=== PATIENT | female | born 1970 | race Caucasian/White ===

== ENCOUNTER → 2019-10-11 15:13 | Outpatient (BNVA) | payer OTHER, SELFPAY | PROVIDERS: Family Provider Family Medicine; Visit Provider Nurse Practitioner Family | DX: G35 Multiple sclerosis (principal); E55.9 Vitamin D deficiency, unspecified; E53.8 Deficiency of other specified B group vitamins; Z13.6 Encounter for screening for cardiovascular disorders | CPT/HCPCS: 80053; 80061; 82306; 82607; 84443; 85025 ==

== ENCOUNTER 2020-11-30 14:51 | Outpatient (CLI) | payer OTHER, SELFPAY ==
--- NOTE | 2020-11-30 15:30 | MM_ITS ---
WS: [id number] BILATERAL DIGITAL SCREENING MAMMOGRAPHY WITH CAD CLINICAL INFORMATION: Z12.31 - Encounter for screening mammogram for malignant ... HISTORY: Screening mammogram. No current complaints. COMPARISON: None. TECHNIQUE: Bilateral CC and MLO views. FINDINGS: Scattered fibroglandular densities bilaterally. A few incidental intramammary lymph nodes. No suspici ous focal mass, asymmetry, calcifications, or architectural distortion. No evidence of malignancy. MM/[place] [id number] IMPRESSION: BI-RADS: 2-Benign FOLLOW UP: 1 Year Follow-up Recommend return to annual screening mammography.
== END 2020-11-30 14:52 | disposition home or self-care (01) ==
LOC: RADSHAW 14:54
PROVIDERS: PCP Nurse Practitioner; Visit Provider Nurse Practitioner Family
DX: Z12.31 Encounter for screening mammogram for malignant neoplasm of breast (principal)
CPT/HCPCS: 77067

== ENCOUNTER 2021-01-15 14:31 | Outpatient (CLI) | payer OTHER, SELFPAY ==
[2021-01-15 14:38] VITALS: BP 134/81; PULSE 70; RESP 18; TEMP 37; O2SAT 97
== END 2021-01-15 14:32 | disposition home or self-care (01) ==
LOC: ONCMED 14:33
PROVIDERS: PCP Nurse Practitioner; Referring Provider Psychiatry & Neurology Neurology; Visit Provider Psychiatry & Neurology Neurology
DX: E53.8 Deficiency of other specified B group vitamins (principal); E55.9 Vitamin D deficiency, unspecified
CPT/HCPCS: J2930; J7050

== ENCOUNTER 2021-01-16 07:00 | Outpatient (CLI) | payer OTHER, SELFPAY ==
[2021-01-16 14:45] VITALS: BP 117/72; PULSE 68; RESP 18; TEMP 37; O2SAT 98
== END 2021-01-16 07:01 | disposition home or self-care (01) ==
LOC: ONCMED 07:01
PROVIDERS: PCP Nurse Practitioner; Referring Provider Psychiatry & Neurology Neurology; Visit Provider Psychiatry & Neurology Neurology
DX: E53.8 Deficiency of other specified B group vitamins (principal); E55.9 Vitamin D deficiency, unspecified; G35 Multiple sclerosis
CPT/HCPCS: J2930; J7050

== ENCOUNTER 2021-01-17 06:59 | Outpatient (CLI) | payer OTHER, SELFPAY ==
[2021-01-17 14:27] VITALS: BP 130/78; PULSE 77; RESP 18; TEMP 36.7; O2SAT 98
== END 2021-01-17 07:00 | disposition home or self-care (01) ==
LOC: ONCMED 07:00
PROVIDERS: PCP Nurse Practitioner; Visit Provider Psychiatry & Neurology Neurology
DX: E53.8 Deficiency of other specified B group vitamins (principal); E55.9 Vitamin D deficiency, unspecified; G35 Multiple sclerosis
CPT/HCPCS: J2930; J7050

== ENCOUNTER → 2021-01-29 14:39 | Outpatient (BNVA) | payer OTHER, SELFPAY | PROVIDERS: PCP Nurse Practitioner; Visit Provider Nurse Practitioner Family | DX: K59.09 Other constipation (principal); K62.5 Hemorrhage of anus and rectum; R53.83 Other fatigue; K59.00 Constipation, unspecified | CPT/HCPCS: 74018; 80053; 82306; 82607; 85025 ==

== ENCOUNTER → 2021-04-02 10:12 | Outpatient (BNVA) | payer OTHER, SELFPAY | PROVIDERS: PCP Nurse Practitioner; Visit Provider Surgery | DX: Z20.822 Contact with and (suspected) exposure to COVID-19 (principal); Z11.52 Encounter for screening for COVID-19 | CPT/HCPCS: 87635 ==

== ENCOUNTER 2021-04-06 06:35 | Day surgery (SDC) | payer OTHER, SELFPAY ==
[2021-04-04 12:03] VITALS: BMI 29.0
[2021-04-06 07:09] VITALS: BP 120/95; PULSE 67; RESP 18; TEMP 36.1; O2SAT 98
--- NOTE | 2021-04-06 07:10 | ANES.PREANE2 ---
Pre-Anesthetic Assessment Pre-Anesthetic Assessment: Height/Weight: Height 1.68 m Weight 81.647 kg Temp Pulse Resp BP Pulse Ox 97.0 F L 67 18 120/95 98 04/06/21 07:09 04/06/21 07:09 04/06/21 07:09 04/06/21 07:09 04/06/21 07:09 Preop Diagnosis: diagnostic Proposed Procedure: Operation Date: 04/06/21 07:45 Proposed Procedures p Colonoscopy 63432 K62.5(Not Applicable) - Pool Bautista MD Was Beta Madalyn taken within 24 hours: N/A Was Clonidine taken within 24 hours: N/A Social: Social History: No alcohol and No tobacco Exam: Pre-Anes Outpt Exam: alert, oriented x 3, clear to auscultation bilaterally and regular rate & rhythm Airway: Submandibular: WNL Cervical ROM: WNL MP: 2 Dentition: Full CV/HEM: CV/HEM: Anemia Neuropsych: Comments: MS Anesthetic Plan: ASA status: 2 Anesthesia: MAC Risk of > 500 ml blood loss (7ml/kg in children): No PFSH Anesthesia PFSH: Medical History Chronic constipation Multiple sclerosis Vitamin B 12 deficiency Vitamin D deficiency Surgical History History of colonoscopy 20+yrs Hx of section Hx of hysterectomy Hx of laparoscopic gastric banding Social History Smoking and tobacco status: never smoked Second hand smoke exposure: No Alcohol intake: never Lives independently: Yes Household members: spouse Housing: House Marital status: History of recent travel: No Data Anesthesia Cardiac Studies: No Data to Display
[2021-04-06] MEDS: sodium chloride 0.9% 1,000 ML 30 ML IV (07:15)
--- NOTE | 2021-04-06 07:49 | P.HP_ITS ---
Same Day Surgery H&P Indication for Procedure/HPI DATE OF PROCEDURE: April 06, 2021 CHIEF COMPLAINT/INDICATIONFOR SURGICAL PROCEDURE: constipation PREOP DIAGNOSIS: diagnostic PLANNED PROCEDRUE: Operation Date: 04/06/21 07:45 Proposed Procedures p Colonoscopy 49608 K62.5(Not Applicable) - Pool Bautista MD Medications/Allergies* Allergies/Adverse Reactions Allergy/AdvReac Type Severity Reaction Status Date / Time No Known Allergies Allergy Verified 04/04/21 12:04 Current Medications: Generic Name Dose Route Start Last Admin Trade Name Freq PRN Reason Stop Dose Admin Sodium Chloride 1,000 mls @ 30 mls/hr 04/06/21 07:00 04/06/21 07:15 Sodium Chloride 0.9% IV 04/07/21 06:59 30 mls/hr .Q24H RAFAEL Administration Pertinent History/Comorbid Conditions* Medical History (Updated 02/06/21 @ 17:59 by Pool Bautista MD) Chronic constipation Multiple sclerosis Vitamin B 12 deficiency Vitamin D deficiency Surgical History (Updated 02/06/21 @ 17:59 by Pool Bautista MD) History of colonoscopy 20+yrs Hx of section Hx of hysterectomy Hx of laparoscopic gastric banding Social History Smoking and tobacco status: never smoked Second hand smoke exposure: No Alcohol intake: never Lives independently: Yes Household members: spouse Housing: House Marital status: History of recent travel: No Pertinent Exam Findings alert, oriented x 3 and regular rate & rhythm Recommendations Surgery/Procedure today Coding Level of Care Code Acute 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
[2021-04-06 08:12] VITALS: BP 120/95; PULSE 59; RESP 16; TEMP 36.1; O2SAT 98
[2021-04-06 08:29] VITALS: BP 127/91; PULSE 45; RESP 16; O2SAT 95
--- NOTE | 2021-04-06 08:55 | ANE.PACU2 ---
Inpatient post-anesthesia follow up: Airway intact: Yes Vital signs: Temperature 97 F Pulse Rate 45 Respiratory Rate 16 Blood Pressure 127/91 Pulse Oximetry 95 Oxygen Delivery Me thod Room Air Oxygen Flow Rate Fraction of Inspir ed Oxygen Hydration adequate: Yes Mental status: Baseline
--- NOTE | 2021-04-06 13:19 | ANE.PACU2 ---
Inpatient post-anesthesia follow up: Airway intact: Yes Vital signs: Temperature 97 F Pulse Rate 45 Respiratory Rate 16 Blood Pressure 127/91 Pulse Oximetry 95 Oxygen Delivery Me thod Room Air Oxygen Flow Rate Fraction of Inspir ed Oxygen Hydration adequate: Yes Nausea and vomiting: No Pain level: 1 Mental status: Baseline
== END 2021-04-06 08:56 | disposition home or self-care (01) ==
PROVIDERS: PCP Nurse Practitioner; Visit Provider Surgery
PROC: 0DJD8ZZ Inspection of Lower Intestinal Tract, Via Natural or Artificial Opening Endoscopic (ICD-10-PCS; CPT 45378; principal; 2021-04-06 07:45)
DX: K59.00 Constipation, unspecified (principal); G35 Multiple sclerosis; D12.2 Benign neoplasm of ascending colon; D12.4 Benign neoplasm of descending colon; K64.8 Other hemorrhoids
CPT/HCPCS: 45380; 88305; 96360; J7030

== ENCOUNTER → 2021-05-04 10:42 | Outpatient (BNVA) | payer OTHER, SELFPAY | PROVIDERS: PCP Nurse Practitioner; Visit Provider Nurse Practitioner Family | DX: E53.8 Deficiency of other specified B group vitamins (principal); Z13.6 Encounter for screening for cardiovascular disorders; E55.9 Vitamin D deficiency, unspecified | CPT/HCPCS: 80053; 80061; 82306; 82607; 85025 ==

== ENCOUNTER 2021-05-11 08:04 | Outpatient (CLI) | payer OTHER, SELFPAY ==
[2021-05-11 08:05] VITALS: BP 112/66; BP 115/76; PULSE 57; PULSE 64; RESP 16; TEMP 36.3; TEMP 36.7; O2SAT 98; BMI 29.0
[2021-05-11 09:02] VITALS: BP 115/76; PULSE 98; RESP 16; TEMP 36.7; O2SAT 98
== END 2021-05-11 10:02 | disposition home or self-care (01) ==
LOC: OPS 08:05
PROVIDERS: PCP Nurse Practitioner; Visit Provider Nurse Practitioner Family
DX: U07.1 COVID-19 (principal)
CPT/HCPCS: 96365

== ENCOUNTER → 2021-10-09 09:35 | Outpatient (BNVA) | payer OTHER, SELFPAY | PROVIDERS: PCP Nurse Practitioner; Visit Provider Psychiatry & Neurology Neurology | DX: E53.8 Deficiency of other specified B group vitamins (principal); E55.9 Vitamin D deficiency, unspecified; M21.372 Foot drop, left foot; M62.838 Other muscle spasm; N31.9 Neuromuscular dysfunction of bladder, unspecified; R26.89 Other abnormalities of gait and mobility; R29.898 Other symptoms and signs involving the musculoskeletal system; R53.82 Chronic fatigue, unspecified | CPT/HCPCS: 80053; 82306; 82607; 82784; 85025; 86480; 86705; 86711; 86803; 87340 ==

== ENCOUNTER 2022-09-20 07:18 | Emergency (ER) | payer OTHER, SELFPAY ==
--- NOTE | 2022-09-20 07:21 | XR_ITS ---
WS: [id number] Exam: XR chest 1V portable [id number] Date/Time of Exam: 09/20/2022 7:27 AM Reason For Exam: cp No priors. Findings: The lungs are clear and fully expanded. Costophrenic angles are sharp. No infiltrates. Bronchovascula r relief appears normal. Cardiac silhouette is unremarkable. Bony elements are intact. Mild spondylos is of the T-spine. XR/XR chest 1V portable [id number] IMPRESSION: Unremarkable chest radiograph.
--- NOTE | 2022-09-20 07:27 | CTR_ITS ---
PROCEDURE INFORMATION: Exam: CTA Chest With Contrast Exam date and time: 09/20/2022 8:15 AM Age: 52 years old Clinical indication: Abdominal pain; Epigastric; Chest pressure; Prior surgery; Surgery date: 3-7 days post-operative; Surgery type: Lap band, hysto, ; Additional info: Cp TECHNIQUE: Imaging protocol: Computed tomographic angiography of the chest with contrast. Exam focused on the arteries. 3D rendering (Not supervised by radiologist): MIP and/or 3D reconstructed images were created by the technologist. Total images: 1 Radiation optimization: All CT scans at this facility use at least one of these dose optimization techniques: automated exposure control; mA and/or kV adjustment per patient size (includes targeted exams where dose is matched to clinical indication); or iterative reconstruction. Contrast material: OMNI 350; Contrast volume: 100 ml; Contrast route: INTRAVENOUS (IV); REPORTING DATA: Count of CT and Cardiac NM exams in prior 12 months: This patient has received 0 known CTs and 0 known cardiac nuclear medicine studies in the 12 months prior to the current study. COMPARISON: CR XR chest 1V portable [id number] 09/20/2022 7:46 AM RADIATION DOSE METRICS: Total DLP (mGy-cm): 1060.52 FINDINGS: Pulmonary arteries: Pulmonary artery evaluation of good technical quality with no pulmonary artery embolism identified. Aorta: Unremarkable. No aortic aneurysm. No aortic dissection. Lungs: No acute focal pulmonary opacities are detected. Pleural spaces: Unremarkable. No pneumothorax. No pleural effusion. Heart: Unremarkable. No cardiomegaly. No pericardial effusion. Lymph nodes: Unremarkable. No enlarged lymph nodes. Bones/joints: Unremarkable. No acute fracture. Soft tissues: Unremarkable. PROCEDURE INFORMATION: Exam: CT Abdomen And Pelvis With Contrast Exam date and time: 09/20/2022 8:15 AM Age: 52 years old Clinical indication: Abdominal pain; Epigastric; Chest pressure; Prior surgery; Surgery date: 3-7 days post-operative; Surgery type: Lap band, hysto, ; Additional info: Cp TECHNIQUE: Imaging protocol: Computed tomography of the abdomen and pelvis with contrast. Radiation optimization: All CT scans at this facility use at least one of these dose optimization techniques: automated exposure control; mA and/or kV adjustment per patient size (includes targeted exams where dose is matched to clinical indication); or iterative reconstruction. Contrast material: OMNI 350; Contrast volume: 100 ml; Contrast route: INTRAVENOUS (IV); REPORTING DATA: Count of CT and Cardiac NM exams in prior 12 months: This patient has received 0 known CTs and 0 known cardiac nuclear medicine studies in the 12 months prior to the current study. COMPARISON: CR XR abdomen 1V* [id number] 01/29/2021 2:39 PM RADIATION DOSE METRICS: Total DLP (mGy-cm): 1060.52 FINDINGS: Liver: Normal. No mass. Gallbladder and bile ducts: Normal. No calcified stones. No ductal dilation. Pancreas: Normal. No ductal dilation. Spleen: Normal. No splenomegaly. Adrenal glands: Normal. No mass. Kidneys and ureters: 12 mm incidental right renal cyst, requiring no further evaluation. Stomach and bowel: There is a gastric band identified and is intact. There is no gastric band slippage. Appendix: No evidence of appendicitis. Intraperitoneal space: Unremarkable. No free air. No significant fluid collection. Vasculature: Incidental phleboliths noted. Lymph nodes: Unremarkable. No enlarged lymph nodes. Urinary bladder: Unremarkable as visualized. Reproductive: Prior hysterectomy noted. Bones/joints: Unremarkable. No acute fracture. Soft tissues: Unremarkable. CT/CT angio chest w abd pel w con IMPRESSION: 1. No pulmonary artery embolism identified. 2. No acute focal pulmonary opacities are detected. 3. No acute process identified. IMPRESSION: No acute findings. COMMENTS: Consistent with the [employer]'s Incidental Findings Committee white paper (J Am Syl Radiol 2018): Any incidental renal lesion less than 1 cm or classified as too small to characterize, or any incidental cystic renal lesion characterized as simple-appearing, is likely benign. No follow-up imaging is recommended for these lesions per consensus recommendations based on imaging criteria.
--- NOTE | 2022-09-20 07:33 | W.ED.CHESTPA ---
HPI - Chest Pain General: Chief Complaint: Chest Pain Stated Complaint: Chest pain, Lips numb, SOB Time Seen by Provider: 09/20/22 07:20 Source: patient Mode of arrival: ambulatory Limitations: no limitations History of Present Illness: 52-year-old female has a history of MS she also has a history of a Lap-Band she states she had had surgery on Friday to have her lap band adjusted. She states that today she has been having severe pain in her upper abdomen and around her chest. She states is a sharp pain she rates it a 8 out of 10 she denies any fever she has had some dyspnea. Denies any vomiting or diarrhea. Associated symptoms: Reports abdominal pain and nausea; Deny dyspnea or fever(s) Review of Systems Const: Denies: fever(s) or chills ENMT: Denies: throat pain or dental pain Card: Reports: chest pain Resp: Denies: dyspnea GI: Reports: abdominal pain and nausea : Denies: dysuria Musc: Denies: neck pain or back pain Skin/Breast: Denies: rash Neuro: Denies: headache(s) PFSH ED PFSH: Medical History Chronic constipation Multiple sclerosis Vitamin B 12 deficiency Vitamin D deficiency Surgical History History of colonoscopy (04/06/21) 20+yrs Hx of section Hx of hysterectomy Hx of laparoscopic gastric banding Social History Second hand smoke exposure: No Alcohol intake: never Substance/Drug Use: never Lives independently: Yes Household members: spouse Housing: House Marital status: Physical Exam Const: COMMON NORMALS: patient oriented x3 HENMT: COMMON NORMALS: normocephalic and atraumatic HEAD & SCALP: normocephalic and atraumatic Eye: COMMON NORMALS: conjunctivae normal CONJUNCTIVA: Yes conjunctivae normal Neck/C-Spine: COMMON NORMALS: full ROM and supple Chest: COMMONS NORMALS: normal inspection of the chest and normal palpation of entire chest wall Resp: COMMON NORMALS: normal respiratory effort, No retractions, No use of accessory muscles and clear to auscultation bilaterally AUSCULTATION: clear to auscultation bilaterally Cardio: COMMON NORMALS: regular rate, regular rhythm and No murmurs present (Cardio) RATE: regular rate RHYTHM: regular rhythm GI: COMMON NORMALS: Normal to inspection, nondistended, normoactive bowel sounds present, Soft to palpation and no masses PALPATION: Yes Soft to palpation OTHER: diffuse tenderness Extremity: COMMON NORMALS: normal to inspection and full ROM Neuro: COMMON NORMALS: patient oriented x3, moves all extremities and no focal motor deficits Psych: COMMON NORMALS: mental status grossly normal, Normal thought process present and cooperative THOUGHT PROCESS: Normal thought process present Skin: COMMON NORMALS: no rashes or lesions noted and no wounds GENERAL SKIN EXAM: no rashes or lesions noted Course Vital Signs: Vital signs: Vital Signs Temperature 98.0 F 09/20/22 07:37 Pulse Rate 80 09/20/22 09:10 Respiratory Rate 20 H 09/20/22 07:42 Blood Pressure 142/96 09/20/22 09:10 Pulse Oximetry 94 09/20/22 09:10 Oxygen Delivery Me thod Room Air 09/20/22 09:10 MDM - Chest Pain Medical Decision Making Patient presented her chest and abdominal pain. Is likely postop pain she did have a recent surgery her CT scan and blood work here are all normal her troponins are normal no signs of acute coronary syndrome she has no PE she feels much improved here we will place her on pain meds she follows up with her gastric surgeon and 2 weeks to follow-up as scheduled return if worsening she understands agrees to plan. Medical Records I reviewed the patient's medical records. Lab Data I reviewed the patient's lab results. 09/20/22 07:35 09/20/22 07:35 Radiology Impressions Chest X-Ray 09/20/22 07:21 IMPRESSION: Unremarkable chest radiograph. Chest/Abdomen/Pelvis CT 09/20/22 07:27 IMPRESSION: 1. No pulmonary artery embolism identified. 2. No acute focal pulmonary opacities are detected. 3. No acute process identified. IMPRESSION: No acute findings. COMMENTS: Consistent with the [employer]'s Incidental Findings Committee white paper (J Am Syl Radiol 2018): Any incidental renal lesion less than 1 cm or classified as too small to characterize, or any incidental cystic renal lesion characterized as simple-appearing, is likely benign. No follow-up imaging is recommended for these lesions per consensus recommendations based on imaging criteria. Laboratory Results WBC 8.1 10^3/uL (4.0-10.0) 09/20/22 07:35 RBC 5.26 10^6/uL (4.1-5.3) 09/20/22 07:35 Hgb 14.9 g/dL (11.5-15.3) 09/20/22 07:35 Hct 44.7 % (37.0-47.0) 09/20/22 07:35 MCV 85.0 fl (81-99) 09/20/22 07:35 MCH 28.3 pg (28.0-34.0) 09/20/22 07:35 MCHC 33.3 g/dL (30.0-36.0) 09/20/22 07:35 RDW 12.5 % (12.1-15.1) 09/20/22 07:35 Plt Count 342 10^3/cmm (130-400) 09/20/22 07:35 MPV 10.8 fL (7.4-10.4) H 09/20/22 07:35 Neut % (Auto) 44.1 % 09/20/22 07:35 Lymph % (Auto) 42.9 % 09/20/22 07:35 Wood % (Auto) 9.2 % 09/20/22 07:35 Eos % (Auto) 2.2 % 09/20/22 07:35 Baso % (Auto) 0.6 % 09/20/22 07:35 Neut # (Auto) 3.58 10^3/uL (1.8-7.7) 09/20/22 07:35 Lymph # (Auto) 3.5 10^3/uL (0.8-4.8) 09/20/22 07:35 Wood # (Auto) 0.8 10^3/uL (0.2-0.9) 09/20/22 07:35 Eos # (Auto) 0.2 10^3/uL (0.0-0.8) 09/20/22 07:35 Baso # (Auto) 0.1 10^3/uL (0.0-0.1) 09/20/22 07:35 Nucleated RBC % (auto) 0 % 09/20/22 07:35 Nucleated RBCs # 0.0 /100WBC 09/20/22 07:35 PT 13.10 SECONDS (12.1-14.9) 09/20/22 07:35 INR 0.96 (0.8-1.2) 09/20/22 07:35 Sodium 139 mmol/L (136-145) 09/20/22 07:35 Potassium 3.0 mmol/L (3.5-5.1) L 09/20/22 07:35 Chloride 99 mmol/L (98-107) 09/20/22 07:35 Carbon Dioxide 24 mmol/L (22-29) 09/20/22 07:35 Anion Gap 19.0 (5-19) 09/20/22 07:35 BUN 13 mg/dL (6-20) 09/20/22 07:35 Creatinine 0.6 mg/dL (0.5-0.9) 09/20/22 07:35 GFR Calculation 105.8 mL/min (90-130) 09/20/22 07:35 Glucose 102 mg/dL (65-115) 09/20/22 07:35 Calculated Osmolality 288 mOsm/kg (285-295) 09/20/22 07:35 Lactic Acid 2.4 mmol/L (0.5-2.2) H 09/20/22 08:05 Calcium 9.2 mg/dL (8.5-10.5) 09/20/22 07:35 Total Bilirubin 0.6 mg/dL (0.15-1.2) 09/20/22 07:35 AST 19 U/L (0-32) 09/20/22 07:35 ALT 13 U/L (0-33) 09/20/22 07:35 Alkaline Phosphatase 84 U/L (35-105) 09/20/22 07:35 Troponin T Baseline 9 ng/L (0-10) 09/20/22 07:35 Troponin T 120 Minute 8.07 ng/L (0-10) 09/20/22 09:50 NT-Pro-B Natriuret Pep 141 pg/mL (0-125) H 09/20/22 07:35 Total Protein 6.7 g/dL (6.6-8.7) 06/02/23 07:35 Albumin 4.0 g/dL (3.5-5.2) 09/20/22 07:35 Globulin 2.7 g/dL (1.3-4.6) 09/20/22 07:35 Lipase 221 U/L (13-60) H 09/20/22 07:35 EKG Data EKG 1: I personally reviewed and interpreted this EKG as follows: EKG interpretation date: 09/20/22 EKG interpretation time: 07:27 Interpretation: nsr hr [address] or t wave abnormalities qrs 92 qtc 425 Discharge Plan Discharge Patient Disposition: Home Clinical Impression: Chest pain, Abdominal pain Condition: Stable Prescriptions: New hydrocodone-acetaminophen 5-325 mg tablet 1 tab PO Q6H PRN (Reason: pain) Qty: 14 0RF ondansetron 4 mg tablet,disintegrating 4 mg PO Q6H PRN (Reason: nausea and vomiting) Qty: 14 0RF No Action (DME) BD Integra Syringe 3 mL 25 gauge x 5/8 syringe See Rx Instructions .Route Qty: 6 0RF Rx Instructions: once monthly at home injection of B12 Pepto-Bismol 262 mg Tablet 262 - 524 mg PO QID PRN (Reason: unknown) Excedrin Migraine 250-250-65 mg Tablet 1 - 2 tab PO Q6H PRN (Reason: Migraine Headache) Ocrevus 30 mg/mL Solution See Rx Instructions .ROUTE .COMPLEX Rx Instructions: intravenously every 6 months as directed Discharge Orders: Discharge ED (Routine); Ordered 09/20/22 Ordered By: Amadou Ash Referrals: Yahaira Kaiser, [facility] [Primary Care Provider] - Discharge Diet: Advance as tolerated Discharge Activity: Resume usual activity Patient Instructions: Chest Pain (ED), Abdominal Pain (ED), Opioid Safety Coding Level of Care Code 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
[2022-09-20 07:37] VITALS: BP 135/90; PULSE 80; RESP 22; TEMP 36.7; O2SAT 100
[2022-09-20 07:41] LABS: Basophils # 0.1 10^3/uL (0.0-0.1); Basophils % 0.6 %; Eosinophils # 0.2 10^3/uL (0.0-0.8); Eosinophils % 2.2 %; Hematocrit 44.7 % (37.0-47.0); Hemoglobin 14.9 g/dL (11.5-15.3); Lymphocytes # 3.5 10^3/uL (0.8-4.8); Lymphocytes % 42.9 %; Mean Corpuscular HGB Conc 33.3 g/dL (30.0-36.0); Mean Corpuscular Hemoglobin 28.3 pg (28.0-34.0); Mean Platelet Volume 10.8 fL (7.4-10.4); Monocytes # 0.8 10^3/uL (0.2-0.9); Monocytes % 9.2 %; Neutrophils # 3.58 10^3/uL (1.8-7.7); Neutrophils % 44.1 %; Nucleated Red Blood Cells % 0 %; Platelet Count 342 10^3/cmm (130-400); Red Blood Count 5.26 10^6/uL (4.1-5.3); Red Cell Distribution Width 12.5 % (12.1-15.1); White Blood Count 8.1 10^3/uL (4.0-10.0)
[2022-09-20 07:42] VITALS: RESP 20; O2SAT 100
[2022-09-20] MEDS: HYDROmorphone 1 mg/mL INJ 1 mL IVP (07:42)
[2022-09-20] MEDS: ondansetron 2 mg/ML SDV 2 mL 4 MG IVP (07:43)
[2022-09-20 07:57] LABS: INR 0.96 (0.8-1.2)
[2022-09-20 08:02] LABS: Troponin(5th) Baseline 9 ng/L (0-10)
[2022-09-20 08:04] LABS: Alanine Aminotransferase 13 U/L (0-33); Alkaline Phosphatase 84 U/L (35-105); Blood Urea Nitrogen 13 mg/dL (6-20); Calcium 9.2 mg/dL (8.5-10.5); Carbon Dioxide 24 mmol/L (22-29); Globulin 2.7 g/dL (1.3-4.6); Glomerular Filtration Rate 105.8 mL/min (90-130); Glucose 102 mg/dL (65-115); Total Bilirubin 0.6 mg/dL (0.15-1.2); Total Protein 6.7 g/dL (6.6-8.7)
[2022-09-20 08:18] LABS: Aspartate Amino Transferase 19 U/L (0-32); Chloride 99 mmol/L (98-107)
[2022-09-20 08:19] LABS: Osmolality Calculated 288 mOsm/kg (285-295); Sodium 139 mmol/L (136-145)
[2022-09-20 08:20] LABS: Lipase 221 U/L (13-60); NT Pro B Type Natriuretic Pept 141 pg/mL (0-125)
[2022-09-20] MEDS: iohexol 350 mg/mL 500 mL Btl (per mL) IV (08:25)
[2022-09-20 08:26] LABS: Lactic Sepsis W/Reflex 2.4 mmol/L (0.5-2.2)
[2022-09-20] MEDS: sodium chloride 0.9% 1,000 ML 999 ML IV (09:04)
[2022-09-20 09:10] VITALS: BP 142/96; PULSE 80; O2SAT 94
--- NOTE | 2022-09-20 09:21 | ECG_ITS ---
[facility] Test Date: 2022-09-20 Pat Name: Terri Ruiz Department: Room: Gender: Female [employer] Job Titles: : 1970 Requested By: Amadou Ash Order Number: [id number] Jackie MD: Feng Lau M.D. Measurements Intervals [place] Rate: 72 P: 20 [place]: 120 QRS: 12 QRSD: 92 T: 34 QT: 401 QTc: 440 Interpretive Statements SINUS RHYTHM No previous ECG available for comparison Electronically Signed On 09-20-2022 8:31:33 CDT by Feng Lau M.D. [email or web address]
--- NOTE | 2022-09-20 09:26 | PC.PHAR ---
pt states she takes care of her own medications-pt states she no longer takes baclofen 10mg,amantadine 100mg or oxybutynin 5mg states she stop taking 3-6 months ago-pt states she is only taking the medications entered
[2022-09-20 09:55] LABS: Reflex Lactate Order REFLEX LACTIC ORDERD
[2022-09-20 10:18] LABS: Troponin 5 2HR 8.07 ng/L (0-10)
[2022-09-20 10:38] VITALS: BP 118/72; PULSE 63; O2SAT 100
[2022-09-20 10:44] LABS: Troponin 5 2HR Delta -0.93 ABS# (0-10)
== END 2022-09-20 10:40 | disposition home or self-care (01) ==
PROVIDERS: Emergency Provider Emergency Medicine; PCP Nurse Practitioner
DX: R07.9 Chest pain, unspecified (principal); R10.9 Unspecified abdominal pain
CPT/HCPCS: 36415; 71045; 71275; 74177; 80053; 83605; 83690; 83880; 84484; 85025; 85610; 93005; 96374; 96375; 99285; J1170; J2405; J7030; Q9967

== ENCOUNTER 2022-09-29 15:02 | Emergency (ER) | payer OTHER, SELFPAY ==
[2022-09-29 15:06] VITALS: BP 137/86; PULSE 70; RESP 12; TEMP 36.7; O2SAT 98; BMI 32.3
--- NOTE | 2022-09-29 15:23 | XRR_ITS ---
PROCEDURE INFORMATION: Exam: XR Abdomen Exam date and time: 09/29/2022 3:28 PM Age: 52 years old Clinical indication: Abdominal pain; Generalized; Additional info: Constipation TECHNIQUE: Imaging protocol: Radiologic exam of the abdomen. Views: Frontal supine view of the abdomen. 1 View. COMPARISON: CT angio chest w abd pel w con 09/20/2022 8:15 AM FINDINGS: Gastrointestinal tract: Moderate colonic stool burden. No bowel dilation. Bones/joints: Unremarkable. XR/XR KUB [id number] IMPRESSION: Moderate colonic stool burden.
--- NOTE | 2022-09-29 15:42 | W.ED.ABDPA2 ---
HPI - Abdominal Pain General: Chief Complaint: Abdominal Pain Stated Complaint: abd + back pain Time Seen by Provider: 09/29/22 15:30 History of Present Illness: Patient stated she has severe abdominal pain for last few days. Patient also states she is constipated which is uncommon for her. Patient states she has tried to take sizx-lvd-efrslvt laxatives the last several days with no success. Patient has EMS and says sometimes her bowels just do not work as good as normal. Review of Systems General: Reports: 10 or more systems reviewed and unremarkable except in HPI and below PFSH ED PFSH: Medical History Chronic constipation Multiple sclerosis Vitamin B 12 deficiency Vitamin D deficiency Surgical History History of colonoscopy (04/06/21) 20+yrs Hx of section Hx of hysterectomy Hx of laparoscopic gastric banding Social History Second hand smoke exposure: No Alcohol intake: never Substance/Drug Use: never Lives independently: Yes Household members: spouse Housing: House Marital status: Physical Exam Const: COMMON NORMALS: no acute distress, average body habitus, patient oriented x3, no limitations, healthy appearing, alert and well nourished HENMT: COMMON NORMALS: normocephalic, atraumatic, hearing grossly normal bilaterally, external ears normal, Normal external nose present and moist oral mucous membranes HEAD & SCALP: normocephalic and atraumatic NOSE: Normal external nose present EXTERNAL EAR: Yes external ears normal Neck/C-Spine: COMMON NORMALS: no JVD Chest: COMMONS NORMALS: normal inspection of the chest and normal palpation of entire chest wall Resp: COMMON NORMALS: normal respiratory effort, No retractions, No use of accessory muscles and clear to auscultation bilaterally AUSCULTATION: clear to auscultation bilaterally Cardio: COMMON NORMALS: no JVD, regular rate, regular rhythm, S1 normal heart sound present, S2 normal heart sound present, No gallops present (Cardio), No clicks present (Cardio), No murmurs present (Cardio) and No rub (Cardio) RATE: regular rate RHYTHM: regular rhythm HEART SOUNDS: S1 normal heart sound present and S2 normal heart sound present GI: COMMON NORMALS: Normal to inspection, nondistended, normoactive bowel sounds present, Soft to palpation, No hepatosplenomegaly present and no masses PALPATION: Yes Soft to palpation, Yes Tenderness to palpation present (GI) (Diffusely) and Yes No hepatosplenomegaly present : COMMON NORMALS: Yes no CVA tenderness BLADDER/KIDNEY EXAM: Yes no CVA tenderness Back/Pelvis: COMMON NORMALS: no CVA tenderness Neuro: COMMON NORMALS: patient oriented x3 SENSORIUM/ORIENTATION: Yes alert Course Vital Signs: Vital signs: Vital Signs Temperature 98.0 F 09/29/22 15:06 Pulse Rate 70 09/29/22 15:06 Respiratory Rate 12 09/29/22 15:06 Blood Pressure 137/86 09/29/22 15:06 Pulse Oximetry 98 09/29/22 15:06 Oxygen Delivery Me thod Room Air 09/29/22 15:06 MDM - Abdominal Pain Medical Decision Making Patient presents to the ER with complaints of abdominal pain and being constipated for the last week. Lab work was drawn which was relatively benign, KUB x-ray was obtained which showed moderate colonic stool burden. Patient was given the option of an enema here or enema going home. Patient chose the enema route here because she has failed all the options that she has tried at home. Patient was given a fleets mineral oil enema here. Patient anticipated discharge to home with further bowel regimen. Differential Diagnosis Likely abdominal pain and constipation; Unlikely acute appendicitis, calculus of kidney, diverticulitis, endometriosis, gastroenteritis, pancreatitis or small bowel obstruction Medical Records I reviewed the patient's medical records. Lab Data I reviewed the patient's lab results. 09/29/22 16:00 09/29/22 16:00 Labs/Radiology: Radiology Impressions KUB X-Ray 09/29/22 15:23 IMPRESSION: Moderate colonic stool burden. Laboratory Results WBC 11.8 10^3/uL (4.0-10.0) H 09/29/22 16:00 RBC 5.03 10^6/uL (4.1-5.3) 09/29/22 16:00 Hgb 14.4 g/dL (11.5-15.3) 09/29/22 16:00 Hct 45.5 % (37.0-47.0) 09/29/22 16:00 MCV 90.5 fl (81-99) 09/29/22 16:00 MCH 28.6 pg (28.0-34.0) 09/29/22 16:00 MCHC 31.6 g/dL (30.0-36.0) 09/29/22 16:00 RDW 13.8 % (12.1-15.1) 09/29/22 16:00 Plt Count 383 10^3/cmm (130-400) 09/29/22 16:00 MPV 10.3 fL (7.4-10.4) 09/29/22 16:00 Neut % (Auto) 83.8 % 09/29/22 16:00 Lymph % (Auto) 7.3 % 09/29/22 16:00 [place] % (Auto) 7.5 % 09/29/22 16:00 Eos % (Auto) 0.7 % 09/29/22 16:00 Baso % (Auto) 0.3 % 09/29/22 16:00 Neut # (Auto) 9.84 10^3/uL (1.8-7.7) H 09/29/22 16:00 Lymph # (Auto) 0.9 10^3/uL (0.8-4.8) 09/29/22 16:00 [place] # (Auto) 0.9 10^3/uL (0.2-0.9) 09/29/22 16:00 Eos # (Auto) 0.1 10^3/uL (0.0-0.8) 09/29/22 16:00 Baso # (Auto) 0.0 10^3/uL (0.0-0.1) 09/29/22 16:00 Nucleated RBC % (auto) 0 % 09/29/22 16:00 Nucleated RBCs # 0.0 /100WBC 09/29/22 16:00 Sodium 134 mmol/L (136-145) L 09/29/22 16:00 Potassium 4.5 mmol/L (3.5-5.1) 09/29/22 16:00 Chloride 96 mmol/L (98-107) L 09/29/22 16:00 Carbon Dioxide 30 mmol/L (22-29) H 09/29/22 16:00 Anion Gap 12.5 (5-19) 09/29/22 16:00 BUN 10 mg/dL (6-20) 09/29/22 16:00 Creatinine 0.6 mg/dL (0.5-0.9) 09/29/22 16:00 GFR Calculation 105.8 mL/min (90-130) 09/29/22 16:00 Glucose 108 mg/dL (65-115) 09/29/22 16:00 Calculated Osmolality 278 mOsm/kg (285-295) L 09/29/22 16:00 Calcium 9.1 mg/dL (8.5-10.5) 09/29/22 16:00 Total Bilirubin 0.4 mg/dL (0.15-1.2) 09/29/22 16:00 AST 51 U/L (0-32) H 09/29/22 16:00 ALT 45 U/L (0-33) H 09/29/22 16:00 Alkaline Phosphatase 100 U/L (35-105) 09/29/22 16:00 Total Protein 6.7 g/dL (6.6-8.7) 09/29/22 16:00 Albumin 3.8 g/dL (3.5-5.2) 09/29/22 16:00 Globulin 2.9 g/dL (1.3-4.6) 09/29/22 16:00 Lipase 17 U/L (13-60) 09/29/22 16:00 Discharge Plan Discharge Patient Disposition: Home Clinical Impression: Constipation Condition: Stable Prescriptions: No Action (DME) BD Integra Syringe 3 mL 25 gauge x 5/8 syringe See Rx Instructions .Route Qty: 6 0RF Rx Instructions: once monthly at home injection of B12 Pepto-Bismol 262 mg Tablet 262 - 524 mg PO QID PRN (Reason: unknown) Excedrin Migraine 250-250-65 mg Tablet 1 - 2 tab PO Q6H PRN (Reason: Migraine Headache) Ocrevus 30 mg/mL Solution See Rx Instructions .ROUTE .COMPLEX Rx Instructions: intravenously every 6 months as directed hydrocodone-acetaminophen 5-325 mg tablet 1 tab PO Q6H PRN (Reason: pain) Qty: 14 0RF ondansetron 4 mg tablet,disintegrating 4 mg PO Q6H PRN (Reason: nausea and vomiting) Qty: 14 0RF Discharge Orders: Discharge ED (Routine); Ordered 09/29/22 Ordered By: Magan Zapata Referrals: Yahaira Kaiser, DEGREASER-C [Primary Care Provider] - 1 week Patient Instructions: Constipation (ED), High Fiber Diet (ED), Fleet Enema (ED) Coding Level of Care Code ED 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
[2022-09-29 16:05] LABS: Basophils % 0.3 %; Eosinophils # 0.1 10^3/uL (0.0-0.8); Eosinophils % 0.7 %; Hematocrit 45.5 % (37.0-47.0); Hemoglobin 14.4 g/dL (11.5-15.3); Lymphocytes # 0.9 10^3/uL (0.8-4.8); Lymphocytes % 7.3 %; Mean Corpuscular HGB Conc 31.6 g/dL (30.0-36.0); Mean Corpuscular Hemoglobin 28.6 pg (28.0-34.0); Mean Corpuscular Volume 90.5 fl (81-99); Mean Platelet Volume 10.3 fL (7.4-10.4); Monocytes # 0.9 10^3/uL (0.2-0.9); Monocytes % 7.5 %; Neutrophils # 9.84 10^3/uL (1.8-7.7); Neutrophils % 83.8 %; Nucleated Red Blood Cells % 0 %; Platelet Count 383 10^3/cmm (130-400); Red Blood Count 5.03 10^6/uL (4.1-5.3); Red Cell Distribution Width 13.8 % (12.1-15.1); White Blood Count 11.8 10^3/uL (4.0-10.0)
[2022-09-29 16:27] LABS: Alanine Aminotransferase 45 U/L (0-33); Albumin Level 3.8 g/dL (3.5-5.2); Alkaline Phosphatase 100 U/L (35-105); Anion Gap 12.5 (5-19); Aspartate Amino Transferase 51 U/L (0-32); Blood Urea Nitrogen 10 mg/dL (6-20); Calcium 9.1 mg/dL (8.5-10.5); Carbon Dioxide 30 mmol/L (22-29); Chloride 96 mmol/L (98-107); Globulin 2.9 g/dL (1.3-4.6); Glomerular Filtration Rate 105.8 mL/min (90-130); Glucose 108 mg/dL (65-115); Lipase 17 U/L (13-60); Osmolality Calculated 278 mOsm/kg (285-295); Potassium 4.5 mmol/L (3.5-5.1); Sodium 134 mmol/L (136-145); Total Bilirubin 0.4 mg/dL (0.15-1.2); Total Protein 6.7 g/dL (6.6-8.7)
[2022-09-29 17:30] VITALS: BP 142/74; PULSE 18; O2SAT 97
[2022-09-29] MEDS: ketorolac 30 mg/mL INJ IVP (17:35)
[2022-09-29] MEDS: mineral oil ENEMA 133 mL PR (17:38)
[2022-09-29 18:25] VITALS: BP 142/60; PULSE 78; RESP 16; O2SAT 97
== END 2022-09-29 18:26 | disposition home or self-care (01) ==
PROVIDERS: Emergency Provider Emergency Medicine; PCP Nurse Practitioner
DX: K59.00 Constipation, unspecified (principal)
CPT/HCPCS: 74018; 80053; 83690; 85025; 96374; 99284; J1885

== ENCOUNTER → 2022-11-15 09:14 | Outpatient (BNVA) | payer OTHER, SELFPAY | PROVIDERS: PCP Nurse Practitioner; Visit Provider Nurse Practitioner Family | DX: G35 Multiple sclerosis (principal); M79.89 Other specified soft tissue disorders; Z98.84 Bariatric surgery status | CPT/HCPCS: 80053; 80061; 83036; 84443; 85025 ==

== ENCOUNTER → 2023-09-24 12:18 | Outpatient (BNVA) | payer OTHER, SELFPAY | PROVIDERS: PCP Nurse Practitioner; Visit Provider Nurse Practitioner Family | DX: R39.9 Unspecified symptoms and signs involving the genitourinary system (principal) | CPT/HCPCS: 81000; 87086 ==

== ENCOUNTER → 2023-09-26 10:33 | Outpatient (BNVA) | payer OTHER, SELFPAY | PROVIDERS: PCP Nurse Practitioner; Visit Provider Nurse Practitioner Family | DX: R31.9 Hematuria, unspecified (principal); R31.0 Gross hematuria | CPT/HCPCS: 80053; 85025 ==

== ENCOUNTER 2023-10-15 13:42 | Outpatient (CLI) | payer OTHER, SELFPAY ==
--- NOTE | 2023-10-15 14:00 | CTR_ITS ---
PROCEDURE INFORMATION: Exam: CT Abdomen And Pelvis Without And With Contrast Exam date and time: 10/15/2023 2:03 PM Age: 53 years old Clinical indication: Prior surgery; Surgery date: 6+ months; Surgery type: Lap band, hyst; Patient HX: Shawn hematuria x 3 weeks ago, uti's, HX of ms and kidney stones; Additional info: R31.9 - hematuria, unspecified TECHNIQUE: Imaging protocol: Computed tomography of the abdomen and pelvis without and with contrast. Radiation optimization: All CT scans at this facility use at least one of these dose optimization techniques: automated exposure control; mA and/or kV adjustment per patient size (includes targeted exams where dose is matched to clinical indication); or iterative reconstruction. Contrast material: OMNI 350; Contrast volume: 100 ml; Contrast route: INTRAVENOUS (IV); COMPARISON: CT angio chest w abd pel w con 09/20/2022 8:15 AM RADIATION DOSE METRICS: Total DLP (mGy-cm): 1368.4 FINDINGS: Liver: No focal hepatic lesion. Gallbladder and biliary ducts: Grossly unremarkable. No evidence of inflammatory changes. No biliary dilatation. Pancreas: Grossly unremarkable. Spleen: Grossly unremarkable. Adrenal glands: Grossly unremarkable. Kidneys and ureters: There is a simple appearing right-sided renal cyst for which dedicated imaging follow-up is not required. Otherwise no evidence of renal parenchymal abnormality. No hydronephrosis or ureteral stone. Stomach and bowel: Gastric band in place. The distal esophagus is dilated fluid-filled with narrowing of the GE junction at the level of the gastric band. No evidence of bowel obstruction or perienteric inflammatory changes. Appendix: Grossly unremarkable. Intraperitoneal space: No evidence of free air or fluid collection. Vasculature: No aneurysmal dilatation or dissection of the abdominal aorta. The celiac trunk, SMA and JORDAN are grossly patent. No evidence of IVC thrombus. The portal vein, SMV and splenic veins are grossly patent. Lymph nodes: No adenopathy. Urinary bladder: Grossly unremarkable. Reproductive: Prior hysterectomy. Bones/joints: No evidence of acute fracture or aggressive osseous lesion. Soft tissues: No evidence of fluid collection or hematoma in the superficial soft tissues. CT/CT abdomen pelvis wo/w [id number] IMPRESSION: 1. No evidence of acute abnormality in the abdomen or pelvis. No explanation for hematuria. 2. Gastric band in place with dilation and fluid filling the distal esophagus raising the question overdistension of the band. Follow-up GI/surgical evaluation is recommended.
[2023-10-15] MEDS: iohexol 350 mg/mL 500 mL Btl (per mL) IV (14:09)
== END 2023-10-15 13:43 | disposition home or self-care (01) ==
LOC: RAD 13:43
PROVIDERS: PCP Nurse Practitioner; Visit Provider Nurse Practitioner Family
DX: R31.9 Hematuria, unspecified (principal); R31.0 Gross hematuria; Z98.84 Bariatric surgery status; K22.89 Other specified disease of esophagus; N28.1 Cyst of kidney, acquired; Z90.710 Acquired absence of both cervix and uterus
CPT/HCPCS: 74178; Q9967

== ENCOUNTER → 2024-09-20 10:50 | Outpatient (BNVA) | payer OTHER, SELFPAY | PROVIDERS: PCP Nurse Practitioner; Visit Provider Nurse Practitioner | DX: S80.862A Insect bite (nonvenomous), left lower leg, initial encounter (principal); W57.XXXA Bitten or stung by nonvenomous insect and other nonvenomous arthropods, initial encounter | CPT/HCPCS: 86618; 86666; 86757 ==

== ENCOUNTER 2024-12-10 07:40 | Emergency (ER) | payer OTHER, SELFPAY ==
--- NOTE | 2024-12-10 07:44 | ECG_ITS ---
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 Measurements Intervals [place] Rate: 62 P: 47 CT: 157 QRS: 38 QRSD: 92 T: 38 QT: 409 QTc: 418 Interpretive Statements SINUS RHYTHM LOW QRS VOLTAGE IN PRECORDIAL LEADS [QRS DEFLECTION < 1.0 mV IN CHEST LEADS] Compared to ECG 09/20/2022 07:27:09 Low QRS voltage now present Electronically Signed On 12-10-2024 14:06:30 CDT by David Davalos M.D. [id number]
--- NOTE | 2024-12-10 07:44 | ED_ITS ---
HPI - Chest Pain 2 General: Chief Complaint: Chest Pain Stated Complaint: chest pain Time Seen by Provider: 12/10/24 07:43 History of Present Illness: 54-year-old female presents emergency ro om with complaint of chest pain. She has had several episodes in the past she was driving to work today approximately an hour before arriving in the emergency room. She has pain that goes up into her neck and into her back. She has intermittently had this in the past. She has had 2 different bariatric surgeries having gastric banding twice. She is not known to be diabetic. She does have a history of MS that she gets this discomfort intermittently usually treats with Tums. She has noticed this time if she presses very hard in her chest takes a deep breath she does get some relief. No known history of coronary artery disease or arrhythmias. No previous cardiac workup. Associated symptoms: Reports abdominal pain; Deny dyspnea, fever(s), nausea or vomiting Related Data Home Medications ?Medication ?Instructions ?Recorded ?Confirmed [id number] 250 1 - 2 tab PO Q6H SD N Migraine 09/20/22 09/20/24 mg-250 mg-65 mg tablet (Excedrin Headache Migraine) ocrelizumab 30 mg/mL intravenous See Rx Instructions . Route .COMPLEX 09/20/22 09/20/24 solution (Ocrevus) Previous Rx's ?Medication ?Instructions ?Recorded syringe with needle, safety 3 mL #6 ea 05/14/21 25 gauge x 5/8 (BD Integra Syringe) doxycycline monohydrate 25 mg/5 mL 100 mg (20 mL) PO B ID 7 days #280 09/20/24 oral suspension mL triamcinolone acetonide 0.1 % 1 applic topical TID PRN itching 09/20/24 topical cream #80 grams pantoprazole 40 mg tablet,delayed 40 mg PO BID #40 tab s 12/10/24 release sucralfate 1 gram tablet (Carafate) 1 g PO Q6H PRN dys pepsia #40 tabs 12/10/24 Allergies Allergy/AdvReac Type Severity Reaction Status Date / Time No Known Allergies Allergy Verified 09/20/24 10:12 Review of Systems 2 Const: Denies: fever(s) or chills Card: Reports: chest pain Resp: Denies: dyspnea GI: Reports: abdominal pain and constipation; Denies: nausea, vomiting, hematemesis, coffee ground emesis, diarrhea, hematochezia or melena : Denies: dysuria, urinary frequency or urinary urgency Musc: Reports: neck pain and back pain Skin/Breast: Denies: rash PFSH ED 2 PFSH: Medical History Chronic constipation Vitamin B 12 deficiency Vitamin D deficiency Multiple sclerosis Surgical History History of colonoscopy (04/06/21) 20+yrs Hx of laparoscopic gastric banding Hx of hysterectomy Hx of section Social History Smoking and tobacco/nicotine status: never used tobacco/nicotine Second hand smoke exposure: No Alcohol intake: never Substance/Drug Use: never Lives independently: Yes Household members: spouse Housing: House Marital status: Physical Exam 2 Const: COMMON NORMALS: no acute distress GENERAL APPEARANCE: cooperative and comfortable ORIENTATION/CONSCIOUSNESS: Yes awake, Yes oriented to person, Yes oriented to place and Yes oriented to time HENMT: COMMON NORMALS: normocephalic, atraumatic and hearing grossly normal bilaterally HEAD & SCALP: normocephalic and atraumatic Resp: COMMON NORMALS: normal respiratory effort, No retractions, No use of accessory muscles and clear to auscultation bilaterally AUSCULTATION: clear to auscultation bilaterally Cardio: COMMON NORMALS: regular rate, regular rhythm and No murmurs present (Cardio) RATE: regular rate RHYTHM: regular rhythm GI: COMMON NORMALS: Soft to palpation and No hepatosplenomegaly present A USCULTATION: Yes normoactive bowel sounds PALPATION: Yes Soft to palpation, No Tenderness to palpation present (GI), No Guarding due to palpation present (GI) and Yes No hepatosplenomegaly present Extremity: COMMON NORMALS: normal to inspection, capillary refill normal, no clubbing, cyanosis or edema, no calf tenderness and no pedal edema Neuro: SENSORIUM/ORIENTATION: Yes oriented to person, Yes oriented to place and Yes oriented to time Skin: COMMON NORMALS: no rashes or lesions noted GENERAL SKIN EXAM: no rashes or lesions noted Course 2 Vital Signs: Vital signs: Vital Signs Temperature 97.5 F L 12/10/24 07:49 Pulse Rate 54 L 12/10/24 10:35 Respiratory Rate 14 12/10/24 10:35 Blood Pressure 120/69 12/10/24 10:35 Pulse Oximetry 100 12/10/24 10:35 Oxygen Delivery Me thod Room Air 12/10/24 09:44 MDM - Chest Pain Medical Decision Making Patient has had a prior lap band. There is a small amount of high density material in the esophagus. I discussed Dr. Clements. Suspect this is a Tums she ingested just prior to arrival. Suspect some of her symptoms are due to her previous bariatric surgeries EKGs cardiac enzymes are negative will discharge patient home started on Protonix. Encouraged her to follow-up where she had her bariatric surgery to see if they need to do endoscopy or consideration of other evaluation intervention no acute findings at this time. Medical Records I reviewed the patient's medical records. Lab Data I reviewed the patient's lab results. 12/10/24 07:56 12/10/24 07:56 Radiology Impressions Chest X-Ray 12/10/24 07:44 IMPRESSION: No lobar consolidation is appreciated. No interval acute cardiopulmonary changes are appreciated. Abdomen/Pelvis CT 12/10/24 08:19 IMPRESSION: 1. No acute abdominal pelvic abnormalities. 2. No GI tract obstruction. 3. Normal appendix. 4. Prior lap band procedure which appears intact and similar to prior exams. 5. There is a small amount of high density material in the distal esophagus of uncertain etiology. No oral contrast was provided for the CT. This may be a medicinal foreign body. 6. No renal obstruction. 7. Prior hysterectomy. Laboratory Results WBC 7.52 10^3/uL (3.29-11.43) 12/10/24 07:56 RBC 5.22 10^6/uL (3.85-5.65) 12/10/24 07:56 Hgb 14.70 g/dL (11.27-16.99) 12/10/24 07:56 Hct 44.9 % (36-47) 12/10/24 07:56 MCV 86.0 fl (85-98) 12/10/24 07:56 MCH 28.2 pg (27-33) 12/10/24 07:56 MCHC 32.7 g/dL (30-55) 12/10/24 07:56 RDW 13.5 % (12.1-15.1) 12/10/24 07:56 Plt Count 387 10^3/cmm (157-399) 12/10/24 07:56 MPV 10.2 fL (7.4-10.4) 12/10/24 07:56 Neut % (Auto) 49.1 % 12/10/24 07:56 Lymph % (Auto) 38.7 % 12/10/24 07:56 [place] % (Auto) 8.9 % 12/10/24 07:56 Eos % (Auto) 2.5 % 12/10/24 07:56 Baso % (Auto) 0.5 % 12/10/24 07:56 Neut # (Auto) 3.69 10^3/uL (1.8-7.7) 12/10/24 07:56 Lymph # (Auto) 2.9 10^3/uL (0.8-4.8) 12/10/24 07:56 [place] # (Auto) 0.7 10^3/uL (0.2-0.9) 12/10/24 07:56 Eos # (Auto) 0.2 10^3/uL (0.0-0.8) 12/10/24 07:56 Baso # (Auto) 0.0 10^3/uL (0.0-0.1) 12/10/24 07:56 Nucleated RBC % (auto) 0 % 12/10/24 07:56 Nucleated RBCs # 0.0 /100WBC 12/10/24 07:56 Sodium 139 mmol/L (136-145) 12/10/24 07:56 Potassium 3.8 mmol/L (3.5-5.1) 12/10/24 07:56 Chloride 101 mmol/L (98-107) 12/10/24 07:56 Carbon Dioxide 24 mmol/L (22-29) 12/10/24 07:56 Anion Gap 17.8 (5-19) 12/10/24 07:56 BUN 10 mg/dL (6-20) 12/10/24 07:56 Creatinine 0.6 mg/dL (0.5-0.9) 12/10/24 07:56 GFR Calculation 105.0 mL/min (90-130) 12/10/24 07:56 Glucose 97 mg/dL (65-115) 12/10/24 07:56 Calculated Osmolality 287 mOsm/kg (285-295) 12/10/24 07:56 Calcium 9.7 mg/dL (8.5-10.5) 12/10/24 07:56 Total Bilirubin 0.4 mg/dL (0.15-1.2) 12/10/24 07:56 AST 13 U/L (0-32) 12/10/24 07:56 ALT 8 U/L (0-33) 12/10/24 07:56 Alkaline Phosphatase 123 U/L (35-105) H 12/10/24 07:56 Troponin T Baseline 7 ng/L (0-10) 12/10/24 07:56 Troponin T 120 Minute 7.32 ng/L (0-10) 12/10/24 09:24 Delta Troponin T 0.32 ABS# (0-10) 12/10/24 09:24 Total Protein 7.3 g/dL (6.6-8.7) 12/10/24 07:56 Albumin 4.4 g/dL (3.5-5.2) 12/10/24 07:56 Globulin 2.9 g/dL (1.3-4.6) 12/10/24 07:56 All radiology interpretation(s) finalized by discharge EKG Data EKG 1: Interpretation: EKG 12/10/2024 7:44 AM normal sinus rhythm rate of 62. 157 QTc 418[address] No acute [address] changes no significant change compared EKG from 10/10/2022 EKG 2: Interpretation: EKG 12/10/2024 9:44 AM normal sinus bradycardia rate of 48 SD interval 159 QTc [address] findings. EKG changed to sinus bradycardia from previous EKG. Discharge Plan Discharge Patient Disposition: Home Clinical Impression: Chest pain due to gastrointestinal reflux disease Condition: Stable Prescriptions: New pantoprazole 40 mg tablet,delayed release (DR/EC) 40 mg PO BID Qty: 40 0RF Rx Instructions: 1 pill twice a day for 10 days and 1 pill daily sucralfate [Carafate] 1 gram tablet 1 g PO Q6H PRN (Reason: dyspepsia) Qty: 40 0RF No Action doxycycline monohydrate 25 mg/5 mL suspension for reconstitution 100 mg PO BID 7 Days Qty: 280 0RF triamcinolone acetonide 0.1 % cream 1 applic topical TID PRN (Reason: itching) Qty: 80 0RF (DME) BD Integra Syringe 3 mL 25 gauge x 5/8 syringe See Rx Instructions .Route Qty: 6 0RF Rx Instructions: once monthly at home injection of B12 Excedrin Migraine 250-250-65 mg Tablet 1 - 2 tab PO Q6H PRN (Reason: Migraine Headache) Ocrevus 30 mg/mL Solution See Rx Instructions .ROUTE .COMPLEX Rx Instructions: intravenously every 6 months as directed Discharge Orders: Discharge ED (Routine); Ordered 12/10/24 Ordered By: Ethan Meehan Referrals: Yahaira Kaiser, CAROLA [Primary Care Provider, Family Practice] Discharge Diet: As Directed Discharge Activity: Resume usual activity Patient Instructions: Opioid Safety, Pain Management, Patient Portal & Guillermo Instructions Activity Restrictions/Additional Instructions: Thank you for choosing [facility] for your healthcare needs today. It is very important that you follow up as instructed or that you return to the Emergency Department should you have concerns or if your condition changes or worsens in any way. You are seen in the emergency room with complaint of epigastric and chest discomfort. Your cardiac enzymes chest x-ray abdominal CT all looks normal. Your laboratory test did not show any abnormalities EKGs did not show any signs of acute coronary syndrome. Will discharge you home recommend you start pantoprazole 1 pill twice a day for 10 days and 1 pill daily you can use Carafate for the next 3 to 4 days as needed to relieve stomach discomfort. Strongly recommend you follow-up with the surgery team that did your gastric band to see if they feel you need further evaluation including possible EGD. 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
--- NOTE | 2024-12-10 07:44 | XRR_ITS ---
PROCEDURE INFORMATION: Exam: XR Chest Exam date and time: 12/10/2024 7:59 AM Age: 54 years old Clinical indication: Pain; Angina pectoris; Additional info: Chest pain. No history of recent trauma or surgery is provided. TECHNIQUE: Imaging protocol: Radiologic exam of the chest. 2image(s) are provided. Views: 1 view. COMPARISON: 1. CT angio chest w abd pel w con 09/20/2022 8:15 AM 2. Chest reports 09/20/2022 FINDINGS: Lungs: No lobar consolidation is appreciated. There appears to be some marginal air trapping. Pleural spaces: No pneumothorax or significant pleural effusion is appreciated. Heart/Mediastinum: The cardiomediastinal silhouette is within normal for size.No cardiac decompensation is appreciated. Diaphragm: The hemidiaphragms are symmetric. Bones/joints: No interval displaced fracture or dislocation is appreciated.There are some degenerative changes of the shoulders and spine overall present. Soft tissues: No radiopaque foreign body or subcutaneous emphysema is appreciated. There appears to be some lap band related change similar overall. No other significant interval changes are appreciated. XR/XR chest 1V portable [id number] IMPRESSION: No lobar consolidation is appreciated. No interval acute cardiopulmonary changes are appreciated.
--- OUTSIDE RECORDS SUMMARY | 2024-12-10 07:45 | XMS_ITS | Encounter Summary ---
Author Organization [facility] Address [address] [place] [address] Care Team Providers Care Cage Unloader Name Role Phone Unavailable Primary Care Provider Unavailabl e Encounter Details Date Type Department Care Team (Latest Contact Info) Description 10/06/2002 Outpatient Historical [facility] Cardiology- [place] [address] [place] [id number] Shan Luna MD NO ADDRESS ON FILE ABNORM ELECTROCARDIOGRAM (Primary Dx); PREMATURE BEATS NEC Social History Tobacco Use Types Packs/Day Years Used Date Smoking Tobacco: Never Assessed Comments Unknown Sex and Gender Information Value Date Recorded Sex Assigned at Not on file 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
--- OUTSIDE RECORDS SUMMARY | 2024-12-10 07:45 | XMS_ITS | Encounter Summary ---
Author Organization [facility] Address [address] [place] [address] Care Team Providers Care Field Representative Name Role Phone Unavailable Primary Care Provider Unavailabl e Encounter Details Date Type Department Care Team (Late st Contact Info) Description 06/14/1997 Outpatient Historical [facility] NE[facility]OLOG[facility] Ethan Ortiz MD [address] [place] [address] Multiple sclerosis (CMS/HCC) (Primary Dx) Social History Tobacco Use Types Packs/Day Years Used Date Smoking Tobacco: Never Assessed Comments Unknown Sex and Gender Information Value Date Recorded Sex Assigned at Not on file 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
--- OUTSIDE RECORDS SUMMARY | 2024-12-10 07:45 | XMS_ITS | Encounter Summary ---
Author Organization [facility] Address [address] [place] [address] Care Team Providers Care Restaurant Hourly Team Member Name Role Phone Unavailable Primary Care Provider Unavailabl e Encounter Details Date Type Department Care Team (Late st Contact Info) Description 11/23/1998 Outpatient Historical HIS [facility] Ethan Ortiz MD [address] [place] [address] Multiple sclerosis (CMS/HCC) (Primary Dx) Social History Tobacco Use Types Packs/Day Years Used Date Smoking Tobacco: Never Assessed Comments Unknown Sex and Gender Information Value Date Recorded Sex Assigned at Not on file 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
--- OUTSIDE RECORDS SUMMARY | 2024-12-10 07:45 | XMS_ITS | Encounter Summary ---
Author Organization [facility] Address [address] [place] [address] Care Team Providers Care Air Hoist Operator Name Role Phone Unavailable Primary Care Provider Unavailabl e Encounter Details Date Type Department Care Team (Late st Contact Info) Description 09/20/2002 Outpatient Historical HIS [facility] Barrett Jain, Manolo Mcdaniel MD [address] [place] [address] Social History Tobacco Use Types Packs/Day Years Used Date Smoking Tobacco: Never Assessed Comments Unknown Sex and Gender Information Value Date Recorded Sex Assigned at Not on file 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
--- OUTSIDE RECORDS SUMMARY | 2024-12-10 07:45 | XMS_ITS | Clinical Summary ---
Author Organization [employer] Address [address] [place]: Epic Prelude [place]T [place] [address] Care Team Providers Care Fuel Truck Driver Name Role Phone Unavailable Primary Care Provider Unavailabl e Immunizations Immunization Administration Dates Next Due (PNEUMOVAX 23)(50 YRS UP) PN EUMOCOCCAL POLYSACCHARIDE (PPV23) 0.5 ML, IM 09/20/2002 (TDVAX)(7 YRS UP) TETANUS AN D DIPHTHERIA TOXOIDS, ADSORBED (2 LF OF TETANUS TOXOID AND 2 LF OF DIPHTHERIA TOXOID), 0.5ML (PF), IM 09/20/2002 Social History Tobacco Use Types Packs/Day Years Used Date Smoking Tobacco: Never Assessed Comments Unknown Sex and Gender Information Value Date Recorded Sex Assigned at Not on file 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
--- OUTSIDE RECORDS SUMMARY | 2024-12-10 07:45 | XMS_ITS | Encounter Summary ---
Author Organization [facility] Address [address] [place] [address] Care Team Providers Care Solderer Furnace Name Role Phone Unavailable Primary Care Provider Unavailabl e Encounter Details Date Type Department Care Team (Latest Contact Info) Description 12/10/1999 Outpatient Historical HIS [facility] [place] [address] [place] [address] Multiple sclerosis (CMS/HCC) (Primary Dx) Social History Tobacco Use Types Packs/Day Years Used Date Smoking Tobacco: Never Assessed Comments Unknown Sex and Gender Information Value Date Recorded Sex Assigned at Not on file 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
--- OUTSIDE RECORDS SUMMARY | 2024-12-10 07:45 | XMS_ITS | Encounter Summary ---
Author Organization [facility] Address [address] [place] [address] Care Team Providers Care Box Office Agent Name Role Phone Unavailable Primary Care Provider Unavailabl e Encounter Details Date Type Department Care Team (Late st Contact Info) Description 05/15/1998 Outpatient Historical HIS [facility] Ethan Ortiz MD [address] [place] [address] Multiple sclerosis (CMS/HCC) (Primary Dx) Social History Tobacco Use Types Packs/Day Years Used Date Smoking Tobacco: Never Assessed Comments Unknown Sex and Gender Information Value Date Recorded Sex Assigned at Not on file 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
--- OUTSIDE RECORDS SUMMARY | 2024-12-10 07:45 | XMS_ITS | Encounter Summary ---
Author Organization [employer] [facility] Address [address] [place] [address] Care Team Providers Care School Plant Consultant Name Role Phone Unavailable Primary Care Provider Unavailabl e Encounter Details Date Type Department Care Team (Latest Contact Info) Description 09/20/2002 Outpatient Historical [facility] Manolo Hyde Jr., MD [address] [place] [phone] Gynecologic examination (Primary Dx); SCREENING-CARDIOVASC NEC; VACCINE FOR STREP PNEUMONIAE; VACCINE FOR TETANUS + DIPHTHERIA Social History Tobacco Use Types Packs/Day Years Used Date Smoking Tobacco: Never Assessed Comments Unknown Sex and Gender Information Value Date Recorded Sex Assigned at Not on file 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
--- OUTSIDE RECORDS SUMMARY | 2024-12-10 07:45 | XMS_ITS | Encounter Summary ---
Author Organization [facility] Address [address] [place] [address] Care Team Providers Care Spa Host Name Role Phone Unavailable Primary Care Provider Unavailabl e Encounter Details Date Type Department Care Team (Latest Contact Info) Description 12/16/2002 Outpatient Historical [facility] Services [address] 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
--- OUTSIDE RECORDS SUMMARY | 2024-12-10 07:45 | XMS_ITS | Patient Health Record ---
Author Organization [facility] Address [address] [place] [address] Care Team Providers Care Wearing Apparel Folder Name Role Phone Manolo Hyde [phone] Allergies Allergen (clinical drug ingredient) Drug/Non Drug Allergy documented on EMR Reaction Allergy Type Onset Date Status codeine Codeine Unknown Drug Allergy 04/25/2005 Active Substance with sulfonamide structure and antibacterial mechanism of action (substance) Sulfa Antibiotics Unknown Drug Allergy 04/25/2005 Active Reason For Referral No Information Problems Problem Type SNOMED Code ICD Code Onset Dates Problem Status W/U Status Risk Notes Problem Polycystic ovary syndrome (disorder) (472371863) Polycystic ovaries (256.4) 05/25/19 08 Active confirmed [id number]- Problem Multiple sclerosis (85969407) Multiple sclerosis (340) 11/08/19 09 Active confirmed [id number]- Problem Vitamin D deficiency (22466895) Vitamin D deficiency (268.9) 11/25/19 09 Active confirmed [id number]- Problem Acne rosacea (689782584) Acne rosacea (695.3) 11/25/19 09 Active confirmed [id number]- Problem History of bariatric surgical procedure (128806604) Gastric banding status (V45.86) 11/08/19 09 Active confirmed [id number]- Problem Low back pain (039745239) Lower back pain (724.2) 11/05/19 08 Active confirmed [id number] 11- Problem Morbid obesity (778232187) Morbid obesity (278.01) 04/25/19 06 Problem resolved confirmed [id number]- Problem Dyspareunia (39050307) Dyspareunia (625.0) 06/29/19 06 Problem resolved confirmed [id number] 11- Problem Edema (738661389) Edema (782.3) 12/11/19 08 Problem resolved confirmed [id number] 11- Problem Heartburn (22834510) Heartburn (787.1) 11/20/19 07 Problem resolved confirmed [id number] 11- Problem Headache (39002338) Headache (307.81) 03/23/20 07 Problem resolved confirmed [id number] 11- Problem Moderate recurrent major depression (88738454) Major depression, recurrent episode, moderate (296.32) 05/31/19 06 Problem resolved confirmed [id number] 11- Problem 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) Other abnormal laboratory result on blood (790.99) 06/29/19 06 Problem resolved confirmed [id number] 11- Problem Pre-surgery evaluation (252281312) Preoperative examination - other specified (V72.83) 12/09/19 07 Problem resolved confirmed [id number] 11- Problem Skin tag (560262837) Skin tag (701.9) 07/31/19 08 Problem resolved confirmed [id number] 11- Problem Anxiety (63511964) Anxiety (300.02) 06/29/19 06 Problem resolved confirmed [id number] 11- Problem Eye pain (99116625) Eye pain (379.91) 05/31/19 06 Problem resolved confirmed [id number] 11- Problem Knee pain (6114809632) Knee pain (719.46) 11/08/19 09 Problem resolved confirmed [id number] 11- Problem Ankle swelling (568374348) Ankle swelling (719.07) 07/31/19 08 Problem resolved confirmed [id number] 11- Problem Abnormal laboratory test findings without diagnosis (796.4) 08/06/19 06 Problem resolved confirmed [id number] 11- Problem Moderate major depression, single episode (57415857) Major depression, single episode, moderate (296.22) 04/25/19 06 Problem resolved confirmed [id number] 11- Problem Muscle pain (07381610) Muscle aches (729.1) 05/25/19 08 Problem resolved confirmed [id number] 11- Plan Of Treatment No Information Medical (General) History Surgical History Surgery Date(Month/Year) : X 2;
--- OUTSIDE RECORDS SUMMARY | 2024-12-10 07:45 | XMS_ITS | Encounter Summary ---
Author Organization [facility] Address [address] [place] [address] Care Team Providers Care Psychometrist Name Role Phone Unavailable Primary Care Provider Unavailabl e Encounter Details Date Type Department Care Team (Late st Contact Info) Description 05/29/1999 Outpatient Historical [place] [address] [place] [address] Encounter for long-term (current) use of other medications (Primary Dx) Social History Tobacco Use Types Packs/Day Years Used Date Smoking Tobacco: Never Assessed Comments Unknown Sex and Gender Information Value Date Recorded Sex Assigned at Not on file 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
--- OUTSIDE RECORDS SUMMARY | 2024-12-10 07:45 | XMS_ITS | Encounter Summary ---
Author Organization [facility] Address [address] [place] [address] Care Team Providers Care Veneer Trimmer Name Role Phone Unavailable Primary Care Provider Unavailabl e Encounter Details Date Type Department Care Team (Latest Contact Info) Description 04/18/2003 Outpatient Historical [facility] Cardiology Ancillary Services[facility] [address] [place] [phone] Dae Pitts MD NO ADDRESS ON FILE CARDIOMEGALY (Primary Dx) Social History Tobacco Use Types Packs/Day Years Used Date Smoking Tobacco: Never Assessed Comments Unknown Sex and Gender Information Value Date Recorded Sex Assigned at Not on file 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
--- OUTSIDE RECORDS SUMMARY | 2024-12-10 07:45 | XMS_ITS | Encounter Summary ---
Author Organization [facility] Address [address] [place] [address] Care Team Providers Care Dehydrogenation Operator Name Role Phone Unavailable Primary Care Provider Unavailabl e Encounter Details Date Type Department Care Team (Latest Contact Info) Description 05/29/1999 Outpatient Historical HIS [facility] [place] [address] [place] [address] Multiple sclerosis (CMS/HCC) (Primary Dx) Social History Tobacco Use Types Packs/Day Years Used Date Smoking Tobacco: Never Assessed Comments Unknown Sex and Gender Information Value Date Recorded Sex Assigned at Not on file 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
--- OUTSIDE RECORDS SUMMARY | 2024-12-10 07:45 | XMS_ITS | Encounter Summary ---
Author Organization [facility] Address [address] [place] [address] Care Team Providers Care Office Administration Name Role Phone Unavailable Primary Care Provider Unavailabl e Encounter Details Date Type Department Care Team (Latest Contact Info) Description 11/15/2002 Outpatient Historical [facility] [place] [address] [place] [phone] Shan Luna MD NO ADDRESS ON FILE CHR PULMON HEART DIS NEC (CMS/HCC) (Primary Dx) Social History Tobacco Use Types Packs/Day Years Used Date Smoking Tobacco: Never Assessed Comments Unknown Sex and Gender Information Value Date Recorded Sex Assigned at Not on file 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
--- OUTSIDE RECORDS SUMMARY | 2024-12-10 07:45 | XMS_ITS | Encounter Summary ---
Author Organization [facility] Address [address] [place] [address] Care Team Providers Care Director Employee Communications Name Role Phone Unavailable Primary Care Provider Unavailabl e Encounter Details Date Type Department Care Team (Late st Contact Info) Description 10/12/1998 Outpatient Historical HIS [facility] Ethan Ortiz MD [address] [place] [address] Multiple sclerosis (CMS/HCC) (Primary Dx) Social History Tobacco Use Types Packs/Day Years Used Date Smoking Tobacco: Never Assessed Comments Unknown Sex and Gender Information Value Date Recorded Sex Assigned at Not on file 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
--- OUTSIDE RECORDS SUMMARY | 2024-12-10 07:45 | XMS_ITS | Encounter Summary ---
Author Organization [facility] Address [address] [place] [address] Care Team Providers Care Spice Miller Name Role Phone Unavailable Primary Care Provider Unavailabl e Encounter Details Date Type Department Care Team (Latest Contact Info) Description 04/18/2003 Outpatient Historical [facility] Cardiology- [place] [address] [place] [phone] Shan Luna MD NO ADDRESS ON FILE CHR PULMON HEART DIS NEC (CMS/HCC) (Primary Dx) Social History Tobacco Use Types Packs/Day Years Used Date Smoking Tobacco: Never Assessed Comments Unknown Sex and Gender Information Value Date Recorded Sex Assigned at Not on file 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
[2024-12-10 07:49] VITALS: BP 146/81; PULSE 63; RESP 17; TEMP 36.4; O2SAT 100; BMI 33.2
[2024-12-10 08:04] LABS: Hematocrit 44.9 % (36-47); Hemoglobin 14.70 g/dL (11.27-16.99); Mean Corpuscular HGB Conc 32.7 g/dL (30-55); Mean Corpuscular Hemoglobin 28.2 pg (27-33); Mean Corpuscular Volume 86.0 fl (85-98); Nucleated Red Blood Cells % 0 %; Platelet Count 387 10^3/cmm (157-399); Red Blood Count 5.22 10^6/uL (3.85-5.65); White Blood Count 7.52 10^3/uL (3.29-11.43)
--- NOTE | 2024-12-10 08:19 | CT_ITS ---
WS: [id number] CT ABDOMEN AND PELVIS WITH CONTRAST HISTORY: Chest pain and epigastric pain. Prior bariatric surgery. TECHNIQUE: Imaging performed of the abdomen and pelvis with IV contrast. Single phase imaging of the abdomen. Coronal and sagittal reformats are submitted. All CT scans at [facility] use at least one of these dose optimization techniques: automated exposure control; mA and/or kV adjustment per patient size (includes targeted exams where dose is matched to clinical indication); or iterative reconstruction. IV CONTRAST: Omnipaque 350; 100 mL IV. Oral contrast: No DLP: 785.90 mGy.cm COMPARISON: 10/15/2023 Lower thorax: Lung bases are clear. Heart is normal size. High density material in the distal esophagus of uncertain etiology. No oral contrast was provided for this examination. This may be been additional. Mild thickening at the GE junction secondary to the lap band procedure. No retained fluid in the distal esophagus as seen on the prior exam. Liver/biliary system: Normal size with no intrahepatic dilatation. Gallbladder: Normal. No gallstones or wall thickening. No pericholecystic fluid. Pancreas: Normal size pancreas and pancreatic duct. No adjacent inflammation. Spleen: Normal size spleen. No mass or infarct. Adrenal glands: Normal. Right kidney: Normal size kidney. Stable cortical cyst measuring 8 mm upper pole. No renal obstruction. Normal ureter. Left kidney: Normal size kidney. No obstruction. No mass. Aorta: Normal. Lymphadenopathy: None. Free fluid: None. GI tract: Status post lap band procedure. No evidence for slippage of the band. Similar position as on the prior study. No complications are evident. No small bowel obstruction. No colitis. Normal appendix. Abdominal wall: Unremarkable abdominal wall. No hernia. Pelvis: Prior hysterectomy. Both ovaries are identified and contain small follicles. No fluid or adenopathy. Normal urinary bladder. Bones: Unremarkable. CT/CT abdomen pelvis w con* [id number] IMPRESSION: 1. No acute abdominal pelvic abnormalities. 2. No GI tract obstruction. 3. Normal appendix. 4. Prior lap band procedure which appears intact and similar to prior exams. 5. There is a small amount of high density material in the distal esophagus of uncertain etiology. No oral contrast was provided for the CT. This may be a me dicinal foreign body. 6. No renal obstruction. 7. Prior hysterectomy.
[2024-12-10 08:21] LABS: Alanine Aminotransferase 8 U/L (0-33); Albumin Level 4.4 g/dL (3.5-5.2); Alkaline Phosphatase 123 U/L (35-105); Anion Gap 17.8 (5-19); Aspartate Amino Transferase 13 U/L (0-32); Blood Urea Nitrogen 10 mg/dL (6-20); Calcium 9.7 mg/dL (8.5-10.5); Carbon Dioxide 24 mmol/L (22-29); Chloride 101 mmol/L (98-107); Creatinine Clr Calc Pharmacy 126.3220; Globulin 2.9 g/dL (1.3-4.6); Glucose 97 mg/dL (65-115); Osmolality Calculated 287 mOsm/kg (285-295); Potassium 3.8 mmol/L (3.5-5.1); Sodium 139 mmol/L (136-145); Total Protein 7.3 g/dL (6.6-8.7)
[2024-12-10 08:22] LABS: Troponin(5th) Baseline 7 ng/L (0-10)
[2024-12-10 08:25] VITALS: BP 146/81; PULSE 60; RESP 16; O2SAT 96
[2024-12-10] MEDS: iohexol 350 mg/mL 500 mL Btl (per mL) IV (08:44)
[2024-12-10 08:51] VITALS: BP 124/74; PULSE 52; RESP 16; O2SAT 98
[2024-12-10 09:44] VITALS: BP 112/65; PULSE 66; RESP 18; O2SAT 98
--- NOTE | 2024-12-10 09:44 | ECG_ITS ---
[facility] 2024[facility]10 Pat Name: Terri Ruiz Department: Room: Gender: Female Adolescent Specialist: : 1970 Requested By: Ethan Jung Order Number: [id number] Jackie MD: Feng Lau M.D. Measurements Intervals [place] Rate: 48 P: 51 FL: 159 QRS: 22 QRSD: 86 T: -3 QT: 443 QTc: 398 Interpretive Statements SINUS BRADYCARDIA LOW QRS VOLTAGE IN PRECORDIAL LEADS [QRS DEFLECTION < 1.0 mV IN CHEST LEADS] POSSIBLE ANTERIOR MYOCARDIAL INFARCTION , OF INDETERMINATE AGE [30 ms Q WAVE IN V3/V4, OR R < 0.2 mV IN V4] Compared to ECG 12/10/2024 07:44:13 Myocardial infarct finding now present Sinus rhythm no longer present Electronically Signed On 12-11-2024 09:39:19 CDT by Feng Lau M.D. [email or web address]
[2024-12-10 10:04] LABS: Troponin 5 2HR 7.32 ng/L (0-10); Troponin 5 2HR Delta 0.32 ABS# (0-10)
[2024-12-10 10:35] VITALS: BP 120/69; PULSE 54; RESP 14; O2SAT 100
== END 2024-12-10 10:44 | disposition home or self-care (01) ==
PROVIDERS: Emergency Provider Family Medicine; PCP Nurse Practitioner
DX: K21.9 Gastro-esophageal reflux disease without esophagitis (principal); R07.89 Other chest pain
CPT/HCPCS: 36415; 71045; 74177; 80053; 84484; 85025; 93005; 99285; J9999